=== PATIENT | female | born 1980 | race Caucasian/White ===

== ENCOUNTER → 2019-11-28 | Outpatient (CLI) | payer MEDICAID ==
[2019-11-28 12:33] LABS: HCT 44.6 % (34.0-46.0); HGB 14.7 gm/dL (11.4-16.0); MCH 30.8 pg (25.0-35.0); MCV 93.2 fL (80.0-100.0); Mean Platelet Volume 8.7; Platelet Count 221 k/uL (150-450); RBC 4.78 m/uL (3.80-5.40); RDW 13.3 % (11.5-15.5); WBC 8.9 k/uL (3.8-10.6)
== END | disposition home or self-care (01) ==
LOC: LABWHC1 11:32
PROVIDERS: ATTEND Surgery
DX: Z11.59 Encounter for screening for other viral diseases (principal)
CPT/HCPCS: 85027; 36415; U0003

== ENCOUNTER 2019-12-01 09:36 | Observation (INO) | payer MEDICAID ==
[2019-11-28 10:28] VITALS: BMI 29.5
[~2019-12-01 09:36] MED LIST: DEXAMETHASONE SOD PHOSPHATE 10 MG/ML 1 ML VIAL IV ONE; HEPARIN SODIUM,PORCINE 5,000 UNIT/ML 1 ML VIAL SQ ONE; LACTATED RINGERS 1,000 ML IV SCH; LIDOCAINE 1% (10MG/ML) FOR IV START INTRADERMA PRN; ONDANSETRON 4 MG/2 ML VIAL IVP ONE; SCOPOLAMINE 1.5MG/72HR PATCH TRANSDERM ONE
--- NOTE | 2019-12-01 10:46 | P.GSHP ---
History of Present Illness H&P Date: 12/01/19 Chief Complaint: Panniculus This a 39-year-old female presents today for panniculus.. Patient has developed significant skin rashes related to her well-formed panniculus. Patient is aware that this is not a cosmetic procedure of procedure remove redundant skin and fat. Patient with a risk of surgery including the possible need for revisional surgery for cosmesis. Past Medical History Past Medical History: Asthma, Pneumonia Additional Past Medical History / Comment(s): occ migraine, has cold sore, polyps on thyroid, states skin "flap" in front from surgeries and 50 # wt loss. History of Any Multi-Drug Resistant Organisms: MRSA Date of last positivie culture/infection: 03/2016 MDRO Source:: back Past Surgical History: Section, Cholecystectomy, Hernia Repair, Hysterectomy, Uterine Ablation Additional Past Surgical History / Comment(s): EGD, LEEP, hiatal hernia surgery. Past Anesthesia/Blood Transfusion Reactions: Previous Problems w/ Anesthesia, Postoperative Nausea & Vomiting (PONV) Additional Past Anesthesia/Blood Transfusion Reaction / Comment(s): DIFFICULTY BREATHING WHEN SHE WOKE UP. Past Psychological History: No Psychological Hx Reported Smoking Status: Former smoker Past Alcohol Use History: Rare Additional Past Alcohol Use History / Comment(s): STARTED SMOKING AT AGE 16 QUIT 2014 -was only someday smoker Past Drug Use History: None Reported - Past Family History Mother Family Medical History: Deep Vein Thrombosis (DVT) Daughter(s) Family Medical History: Pulmonary Embolus Sister(s) Family Medical History: Pulmonary Embolus Medications and Allergies Home Medications Medication Instructions Recorded Confirmed Type Albuterol Inhaler (Mhu) [Ventolin 1 - 2 puff INHALATION DIRECTED 09/12/15 12/01/19 History Hfa Inhaler] PRN Acetaminophen [Tylenol Extra 500 mg PO DIRECTED PRN 11/28/19 12/01/19 History Strength] Albuterol Nebulizer 1 dose INHALATION DIRECTED PRN 11/28/19 12/01/19 History Budesonide-Formot 160-4.5 Mcg 2 puff INHALATION BID 11/28/19 12/01/19 History [Symbicort 160-4.5 Mcg Inhaler] Valtrex (Unknown Dose) 1 tab PO DIRECTED PRN 11/28/19 12/01/19 History Allergies Allergy/AdvReac Type Severity Reaction Status Date / Time sumatriptan [From Imitrex] Allergy Swelling Verified 11/28/19 09:42 sumatriptan succinate Allergy Swelling Verified 11/28/19 09:42 [From Imitrex] of face Surgical - Exam Vital Signs Temp Pulse Resp BP Pulse Ox 98.1 F 84 16 136/82 96 12/01/19 10:00 12/01/19 10:00 12/01/19 10:00 12/01/19 10:00 12/01/19 10:00 - General well developed, well nourished, no distress, moderate distress - Eyes PERRL - ENT normal pinna - Neck no masses - Respiratory normal expansion - Cardiovascular Rhythm: regular - Abdomen Well-formed panniculus with evidence of chronic skin irritation Abdomen: soft, non tender Assessment and Plan Assessment: Panniculus. We'll perform panniculectomy.
[2019-12-01] MEDS ORDERED: LIDOCAINE 1% INJ 10MG/ML (20 ML MDV) ONE (12:06)
[2019-12-01] MEDS ORDERED: HYDROmorphone (PF) 1 MG/ML ONE (12:06)
[2019-12-01] MEDS ORDERED: PROPOFOL 10 MG/ML 20 ML VIAL IV ONE (12:06)
[2019-12-01] MEDS ORDERED: fentaNYL (PF) 50 MCG/ML 2 ML AMP ONE (12:06)
[2019-12-01] MEDS ORDERED: SUCCINYLCHOLINE CHLORIDE 100 MG/5 ML SYR IV ONE (12:06)
[2019-12-01] MEDS ORDERED: MIDAZOLAM 2 MG/2 ML VIAL ONE (12:06)
[2019-12-01] MEDS ORDERED: LACTATED RINGERS 1,000 ML IV ONE ×2 (13:50→13:51)
[2019-12-01] MEDS ORDERED: HYDROmorphone 0.5 MG/0.5 ML SYRINGE IVP PRN (13:50)
[2019-12-01] MEDS ORDERED: NALOXONE 0.4 MG/ML 1 ML VIAL IV PRN (13:50)
[2019-12-01] MEDS ORDERED: HYDROcodone/APAP 5-325MG 1 EACH TAB PO PRN (13:50)
[2019-12-01] MEDS: HYDROmorphone 0.5 MG/0.5 ML SYRINGE IVP PRN ×3 (14:21→14:49)
[2019-12-01] MEDS: ONDANSETRON 4 MG/2 ML VIAL IVP PRN ×2 (14:21→21:18)
[2019-12-01] MEDS ORDERED: PROMETHAZINE INJ 25 MG/ML 1 ML VIAL IVPB ONE (14:25)
--- NOTE | 2019-12-01 15:42 | P.OP ---
Date of Procedure: 12/01/19 Preoperative Diagnosis: Panniculus Postoperative Diagnosis: Panniculus Procedure(s) Performed: panniculectomy Anesthesia: SAM Surgeon: Elias Owen Estimated Blood Loss (ml): 50 Pathology: none sent Condition: stable Disposition: PACU Operative Findings: 5 pound pannus excision Description of Procedure: PROCEDURE: The patient was placed on the operating table in supine position and received general anesthetic. The abdomen was prepped and draped in the usual sterile fashion. The lower skin incision was then made after the skin was marked with a marker. The incision ran from the pubic area to the level of the anterosuperior iliac spine. Using blunt and sharp dissection and electrocautery the subcutaneous tissues were then dissected down to the level of the fascia external oblique. Next, a leigha shaped incision was made around the um bilicus and the umbilicus was then dissected down to the level of the fascia external oblique. Care was taken to ensure that the umbilical stalk was wide enough in order to maintain viability of the umbilicus. After the umbilicus was dissected a 0 Vicryl suture was used to orientate the umbilicus. The suture was placed at the 12 o'clock position of the umbilicus. Following this the dissection was then made from the inferior pannicular incision cephalad. The xiphoid and costal margins were the limits of the dissection. Several small perforating vessels were ligated and cautery was used to maintain hemostasis. Once the dissection was performed the panniculus was then divided in the midline from the level of the umbilicus towards the pubic area. Downward and lateral traction was then placed on the abdominal wall and the skin was suitably marked for transection of the umbilicus. The skin was then incised and the Bovie was used for dissection of the pannicular flap. Next, three 10-Faroese SOWMYA drains were placed in the wound and brought out through separate stab incisions at the level of the pubic area. The drains were secured to the skin using 3-0 nylon. After the SOWMYA drains were secured, Greg's fascia was closed with interrupted 0 Vicryl sutures and then the skin was closed with running 3-0 Monocryl sutures. Prior to closure of the abdominal wall care was taken to ensure that both the abdominal wall and the abdominal wall flap were hemostatic. Next, the umbilicus was reattached to the abdominal wall. A marking line was made across the top of the iliac crest and this line intercepted with the midline abdominal wall line that had been previously made in the preoperative hold area. A small semicircular U-shaped incision was created at the intersection of the two lines and the umbilicus was brought up through this incision. The umbilicus was then trimmed and secured to the skin using 3-0 Monocryl sutures. At this point the drains were placed to suction. The abdomen was cleaned and then sterile tape was placed over top of the incisions. Abdominal binder was then placed. The patient tolerated the procedure well. The patient was sent to recovery room in stable condition.
[2019-12-01] MEDS: ALBUTEROL NEBULIZED 2.5 MG/3 ML INHALATION SCH (19:28)
[2019-12-01] MEDS: SYMBICORT 160-4.5 MCG INHALER INHALATION SCH (19:28)
[2019-12-01] MEDS: Acetaminophen-Codeine 300-30mg TAB PO PRN (21:18)
--- NOTE | 2019-12-01 23:31 | CONS ---
CONSULTATION REASON FOR CONSULTATION: Advice regarding asthma and other multiple medical problems requested by Dr. Owen. HISTORY OF PRESENT ILLNESS: A 39-year-old woman with a past medical history of asthma, pneumonia, history of section, cholecystectomy, being followed by Dr. Grimm in the outpatient setting underwent panniculectomy for panniculus. The patient had some nausea after that. The patient also using inhalers at home for asthma. Otherwise, there is no history of any fever, rigors. No history of headache, loss of consciousness, seizures. PAST MEDICAL HISTORY: Asthma, pneumonia, history of occasional migraines, history of section, cholecystectomy. MEDICATIONS: Medications prior to admission include: 1. Valtrex 1 tab p.r.n. 2. Symbicort 160/4.5 two puffs b.i.d. 3. Albuterol p.r.n. 4. Tylenol 500 mg p.r.n. ALLERGIES: IMITREX. FAMILY HISTORY: History of DVT in the family. SOCIAL HISTORY: History of smoking. Occasional alcohol intake. REVIEW OF SYSTEMS: ENT: No diminished hearing or diminished vision. CARDIOVASCULAR SYSTEM: As mentioned earlier. RESPIRATORY SYSTEM: As mentioned earlier. GI: As mentioned earlier. : No dysuria. NERVOUS SYSTEM: No numbness or weakness. ALLERGIES/IMMUNOLOGY: Asthma. MUSCULOSKELETAL: As mentioned earlier. HEMATOLOGY: No history of anemia. ENDOCRINE: No history of diabetes or hypothyroidism. CONSTITUTIONAL: As mentioned earlier. DERMATOLOGY: Negative. RHEUMATOLOGY: Negative. PSYCHIATRY: As mentioned earlier. PHYSICAL EXAMINATION: The patient is alert and oriented x3. Pulse 94, blood pressure 151/88, respiration 16, temperature 97.7, pulse ox 97% on 2 L. HEENT: Conjunctivae normal. Oral mucosa moist. NECK: No jugular venous distention. No carotid bruit. No lymph node enlargement. CARDIOVASCULAR: S1, S2 muffled. RESPIRATORY: Breath sounds diminished at the bases. A few rhonchi, no crackles. ABDOMEN: Soft, status post surgery, panniculectomy. LEGS: No edema, no swelling. NERVOUS SYSTEM: Higher function as mentioned. Moves all 4 limbs. No focal motor or sensory deficits. LYMPHATICS: No lymphadenopathy of the neck, axillae or groin. SKIN: No ulcer, rash or bleeding. JOINTS: No active deforming arthropathy. LABS: Labs are preop labs: Hemoglobin is normal. The chemistry available in the chart is normal. ASSESSMENT: 1. Status post panniculectomy. 2. History of asthma. 3. History of pneumonia. 4. History of migraine. 5. History of thyroid polyps. 6. History of MRSA. 7. History of cholecystectomy. 8. History of hysterectomy. 9. History of uterine ablation. 10.History of hiatal hernia surgery. 11.Remote history of nicotine dependence. 12.FULL CODE. RECOMMENDATION AND DISCUSSION: This 39-year-old woman who presented with multiple complex medical issues, at this time I recommend to continue the current medications, continue with symptomatic treatment. Resume the home medications including bronchodilators, incentive spirometry and DVT prophylaxis. We will follow the patient closely with you and patient may be asked to follow with Dr. Grimm closely after discharge. Thank you Dr. Owen for letting us participate in the care of this patient. MMODL / IJN: [id number] /
[2019-12-02] MEDS: ONDANSETRON 4 MG/2 ML VIAL IVP PRN (05:17)
[2019-12-02] MEDS: Acetaminophen-Codeine 300-30mg TAB PO PRN ×2 (05:17→12:04)
[2019-12-02] MEDS: ALBUTEROL NEBULIZED 2.5 MG/3 ML INHALATION SCH ×3 (06:39→12:04)
[2019-12-02] MEDS ORDERED: PANTOPRAZOLE 40 MG TABLET PO SCH (07:30)
[2019-12-02] MEDS: SYMBICORT 160-4.5 MCG INHALER INHALATION SCH (08:02)
[2019-12-02] MEDS ORDERED: ENOXAPARIN 40 MG/0.4 ML SYRINGE SQ SCH (09:00)
[2019-12-02 10:45] VITALS: BP 116/77; PULSE 86; RESP 20; TEMP 98.1
--- NOTE | 2019-12-02 10:54 | P.DS ---
Providers Date of admission: 12/02/19 06:39 Expected date of discharge: 12/02/19 Attending physician: Elias Owen Consults: 12/01/19 13:50 Consult Physician Routine Consulting Provider: Yaw Rivas Consult Reason/Comments: Medical management Do you want consulting provider notified?: Yes Primary care physician: [facility] Course: This a 39-year-old female who underwent panniculectomy. Patient did well postoperative. Please see hospital chart for details. On the day of discharge her abdominal pain was minimal. Her SOWMYA drains had minimal output and her in cision site was clean dry and intact. Procedures: Panniculectomy Patient Condition at Discharge: Good Plan - Discharge Summary Discharge Rx Participant: Yes New Discharge Prescriptions: New Docusate [Colace] 100 mg PO BID #20 capsule HYDROcodone/APAP 5-325MG [[place] 5-325] 1 tab PO Q6HR PRN #10 tab PRN Reason: Pain No Action Albuterol Inhaler (Mhu) [Ventolin Hfa Inhaler] 1 - 2 puff INHALATION DIRECTED PRN PRN Reason: sob Budesonide-Formot 160-4.5 Mcg [Symbicort 160-4.5 Mcg Inhaler] 2 puff INHALATION BID Albuterol Nebulizer 1 dose INHALATION DIRECTED PRN PRN Reason: Shortness Of Breath Acetaminophen [Tylenol Extra Strength] 500 mg PO DIRECTED PRN PRN Reason: Pain Valtrex (Unknown Dose) 1 tab PO DIRECTED PRN PRN Reason: Cold Sores Discharge Medication List Albuterol Inhaler (Mhu) [Ventolin Hfa Inhaler] 1 - 2 puff INHALATION DIRECTED PRN 09/12/15 [History] Acetaminophen [Tylenol Extra Strength] 500 mg PO DIRECTED PRN 11/28/19 [History] Albuterol Nebulizer 1 dose INHALATION DIRECTED PRN 11/28/19 [History] Budesonide-Formot 160-4.5 Mcg [Symbicort 160-4.5 Mcg Inhaler] 2 puff INHALATION BID 11/28/19 [History] Valtrex (Unknown Dose) 1 tab PO DIRECTED PRN 11/28/19 [History] Docusate [Colace] 100 mg PO BID #20 capsule 12/02/19 [Rx] HYDROcodone/APAP 5-325MG [[place] 5-325] 1 tab PO Q6HR PRN #10 tab 12/02/19 [Rx] Follow up Appointment(s)/Referral(s): Elias Owen MD [STAFF PHYSICIAN] - 1 Week
--- NOTE | 2019-12-02 11:44 | P.PN ---
Subjective Progress Note Date: 12/02/19 Principal diagnosis: This is a 39-year-old female who was recently admitted for panniculectomy for panniculus with Dr. Owen and was being closely monitored. Home medications have been resumed and patient will continue with home medications in the outpatient setting. No reports of nausea, vomiting, or diarrhea. Patient states she is passing gas but has not had a bowel movement. She was only on clear liquids and okay to advance diet as tolerated. Patient states she is g oing home today. No reports of fevers, chest pain, shortness of breath, or palpitations. Objective - Vital Signs Vital signs: Vital Signs Temp 98.1 F 12/02/19 08:21 Pulse 86 12/02/19 08:21 Resp 20 12/02/19 08:21 BP 116/77 12/02/19 08:21 Pulse Ox 95 12/02/19 08:21 Intake & Output 12/01/19 12/02/19 12/02/19 18:59 06:59 18:59 Intake Total 1600 840 Output Total 50 1945 320 Balance 1550 -1105 -320 Weight 91 kg Intake: IV 1600 Oral 840 Output: Drainage 145 20 DRAIN 1 45 DRAIN 2 100 20 Urine 1800 300 Estimated Blood Loss 50 Other: # Voids 2 - Exam Gen: This is a 39-year-old female sitting up in bed awake, alert and oriented 3, well-developed, well-nourished. HEENT: Head is atraumatic, normocephalic. Pupils equal, round. Sclerae is anicteric. NECK: Supple. No JVD. No lymphadenopathy. No thyromegaly. LUNGS: Clear to auscultation. No wheezes or rhonchi. No intercostal retractions. HEART: S1, S2 are present ABDOMEN: Soft. Bowel sounds are present. No masses. Mild tenderness status post panniculectomy. SOWMYA drain noted which will be staying in on discharge per surgery until follow-up. EXTREMITIES: No pedal edema. No calf tenderness. NEUROLOGICAL: Patient is awake, alert and oriented x3. Cranial nerves 2 through 12 are grossly intact. Assessment and Plan Assessment: Status post panniculectomy History of asthma, not in any acute exacerbation History of pneumonia History of migraines history of thyroid polyps History of MRSA history of cholecystectomy History of hysterectomy History of uterine ablation History of hiatal hernia surgery Remote history of nicotine dependence Full code Recommendations and discussion: Recommend continue current home medications and symptomatic treatment. May advance diet slowly as tolerated. Will continue to follow closely with surgery during hospitalization. Further recommendations to follow. Patient is anticipating discharge today. Will follow-up with surgery in the outpatient setting.
== END 2019-12-02 14:19 | disposition home or self-care (01) ==
LOC: OR 09:36 → 6PED 14:01 → OR 12-02 06:39 → 6PED 12-02 06:39
PROVIDERS: ADMIT Surgery; ATTEND Surgery
DX: M79.3 Panniculitis, unspecified (principal); J45.909 Unspecified asthma, uncomplicated; Z87.01 Personal history of pneumonia (recurrent); G43.909 Migraine, unspecified, not intractable, without status migrainosus; E07.89 Other specified disorders of thyroid; Z86.14 Personal history of Methicillin resistant Staphylococcus aureus infection; Z90.49 Acquired absence of other specified parts of digestive tract; Z90.710 Acquired absence of both cervix and uterus; Z98.890 Other specified postprocedural states; Z87.891 Personal history of nicotine dependence; Z82.49 Family history of ischemic heart disease and other diseases of the circulatory system; Z79.51 Long term (current) use of inhaled steroids; Z79.899 Other long term (current) drug therapy; Z88.8 Allergy status to other drugs, medicaments and biological substances
CPT/HCPCS: 94640 ×2; 15830; G0378; J2250; J1644; J1100; J2550; J0690; J2405 ×2; J2001; J3010; J1170 ×2; J0330; J2704

== ENCOUNTER → 2020-04-27 | Outpatient (CLI) | payer MEDICAID ==
[2020-04-27 16:16] LABS: African American GFR (CKD) 65.9 (60.0-200.0); Albumin 4.5 g/dL (3.80-4.90); Albumin/Globulin Ratio 1.67 (1.60-3.17); Anion Gap 8.7 mmol/L (4.00-12.00); BUN/Creat Ratio 7.5 Ratio (12.00-20.00); Calcium 9.7 mg/dL (8.7-10.3); Carbon Dioxide 23.3 mmol/L (21.6-31.8); Chol/HDL Ratio 4.53; Globulin 2.7 g/dL (1.6-3.3); LDL Cholesterol,Calculated 113.2 mg/dL (0.0-131.0); Non-African American GFR(CKD) 56.9 (60.0-200.0); Potassium 4.7 mmol/L (3.5-5.5); Total Bilirubin 0.6 mg/dL (0.3-1.2); Total Protein 7.2 g/dL (6.2-8.2); VLDL Calculation 38.8 mg/dL (5.00-40.00)
== END | disposition home or self-care (01) ==
LOC: LABWHC1 08:56
PROVIDERS: ATTEND Internal Medicine Interventional Cardiology
DX: R07.9 Chest pain, unspecified (principal)
CPT/HCPCS: 36415; 80053; 80061

== ENCOUNTER 2020-12-04 21:56 | Emergency (ER) | payer MEDICAID ==
[2020-12-04 22:05] VITALS: BP 138/95; PULSE 91; RESP 18; TEMP 98.1
[2020-12-04] MEDS ORDERED: DIPH,PERTUS(ACELL)TETVAC-LF 0.5 ML VIAL IM ONE (22:47)
[2020-12-04] MEDS ORDERED: LIDOCAINE 1%-EPI 1:100,000 20 ML VIAL SQ STA (22:47)
[2020-12-04] MEDS ORDERED: IBUPROFEN 600 MG TAB PO STA (22:48)
[2020-12-04] MEDS ORDERED: BACITRACIN OINT 1 EACH PACKET TOPICAL ONE (22:48)
--- NOTE | 2020-12-04 23:37 | XR ---
EXAMINATION TYPE: XR shoulder complete LT DATE OF EXAM: 12/04/2020 COMPARISON: NONE HISTORY: Shoulder pain TECHNIQUE: 3 views FINDINGS: Glenohumeral joint is intact. I see no fracture nor dislocation. The left upper ribs appear intact. IMPRESSION: Negative left shoulder exam.
--- NOTE | 2020-12-04 23:39 | XR ---
EXAMINATION TYPE: XR knee complete LT DATE OF EXAM: 12/04/2020 COMPARISON: NONE HISTORY: Knee pain TECHNIQUE: 3 views FINDINGS: I see no fracture nor dislocation. Joint spaces are normal. There is no sign of knee joint effusion. There is no sign of a foreign body. IMPRESSION: Negative left knee exam.
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
== END 2020-12-05 00:52 | disposition home or self-care (01) ==
LOC: EC 21:56
DX: S81.812A Laceration without foreign body, left lower leg, initial encounter (principal); S40.012A Contusion of left shoulder, initial encounter; K21.9 Gastro-esophageal reflux disease without esophagitis; V86.06XA Driver of dirt bike or motor/cross bike injured in traffic accident, initial encounter
CPT/HCPCS: 12004; 90471; 90715; 99284

== ENCOUNTER → 2020-12-27 | Outpatient (CLI) | payer MEDICAID | END | disposition home or self-care (01) | LOC: LABWHC1 14:22 | PROVIDERS: ATTEND Internal Medicine | DX: E04.2 Nontoxic multinodular goiter (principal); E55.9 Vitamin D deficiency, unspecified | CPT/HCPCS: 36415; 82306; 84439; 84443 ==

== ENCOUNTER → 2020-12-27 | Outpatient (CLI) | payer MEDICAID ==
--- NOTE | 2020-12-31 11:34 | MM ---
Reason for exam: screening (asymptomatic). Last mammogram was performed 5 years and 4 months ago. History: Patient is postmenopausal. Excisional biopsy of the right breast. Physical Findings: A clinical breast exam by your physician is recommended on an annual basis and results should be correlated with mammographic findings. MG Screening Mammo w CAD Bilateral CC and MLO view(s) were taken. Prior study comparison: August 31, 2015, mammogram, performed at [facility]. May 03, 2012, mammogram, performed at [facility]. The breast tissue is heterogeneously dense. This may lower the sensitivity of mammography. Previous mammotome biopsy in the right breast x 2. There is chronic nodularity in the right breast. Stable areas of bilateral asymmetric densities. No significant changes when compared with prior studies. ASSESSMENT: Benign, BI-RAD 2 RECOMMENDATION: Routine screening mammogram of both breasts in 1 year.
== END | disposition home or self-care (01) ==
LOC: RADMAMWWP 14:00
PROVIDERS: ATTEND Obstetrics & Gynecology
DX: Z12.31 Encounter for screening mammogram for malignant neoplasm of breast (principal)
CPT/HCPCS: 77067

== ENCOUNTER → 2020-12-28 | Outpatient (CLI) | payer MEDICAID ==
--- NOTE | 2020-12-28 16:17 | US ---
EXAMINATION TYPE: US thyroid st tissue head/neck DATE OF EXAM: 12/28/2020 COMPARISON: NONE CLINICAL HISTORY: E04.2 Nontoxic multinodular goiter. GLAND SIZE: Right Lobe: 4.8 x 1.6 x 1.6 cm Overall Parenchyma: homogenous Left Lobe: 4.1 x 1.2 x 1.5 cm Overall Parenchyma: homogeneous Isthmus Thickness: 0.3 cm NODULES RIGHT: # of nodules measured on right: 1 1. 0.7 X 0.5 x 0.7 cm mid, solid, hypoechoic nodule, which is wider than tall, with smooth margins, without echogenic foci. Prior size: no prior LEFT: # of nodules measured on left: 0 ISTHMUS: # of nodules measured in the isthmus: 0 Bilateral neck scanned, no evidence of lymphadenopathy. IMPRESSION: 1. Hypoechoic nodule in the midpole of the right thyroid gland posteriorly most likely represents a T I-RADS 4 nodule. Continued sonographic follow-up is recommended. 2017 ACR TI-RADS LEVEL: 4 *Highest TI-RADS level nodule reported
== END | disposition home or self-care (01) ==
LOC: RADUSWWP 12:34
PROVIDERS: ATTEND Internal Medicine
DX: E04.2 Nontoxic multinodular goiter (principal)
CPT/HCPCS: 76536

== ENCOUNTER 2021-03-05 10:59 | Emergency (ER) | payer MEDICAID ==
[2021-03-05] MEDS ORDERED: IBUPROFEN 600 MG TAB PO STA (11:30)
[2021-03-05] MEDS ORDERED: ONDANSETRON 4 MG/2 ML VIAL IVP STA (11:30)
[2021-03-05] MEDS ORDERED: SODIUM CHLORIDE 0.9% 1,000 ML IV STA (11:30)
--- NOTE | 2021-03-05 12:06 | XR ---
EXAMINATION TYPE: XR chest 2V DATE OF EXAM: 03/05/2021 COMPARISON: Chest x-ray March 26, 2010 HISTORY: Fever and cough. TECHNIQUE: Frontal and lateral views of the chest are obtained. FINDINGS: There is no new Suspicious focal air space opacity, pleural effusion, or pneumothorax seen . The cardiac silhouette size remains within normal limits. The osseous structures are intact. IMPRESSION: No acute pulmonary infiltrate.
[2021-03-05 12:19] LABS: Basophils % (A) 0 %; Eosinophils % (A) 1 %; HCT 41.6 % (34.0-46.0); HGB 15.2 gm/dL (11.4-16.0); Hyperchromasia Moderate; Lymphocytes # (A) 0.3 k/uL (1.0-4.8); Lymphocytes % (A) 7 %; MCH 31.9 pg (25.0-35.0); MCHC 36.5 g/dL (31.0-37.0); MCV 87.4 fL (80.0-100.0); Mean Platelet Volume 8.5; Monocytes # (A) 0.1 k/uL (0-1.0); Monocytes % (A) 2 %; Neutrophils # (A) 4.2 k/uL (1.3-7.7); Neutrophils % (A) 89 %; Platelet Count 136 k/uL (150-450); Poikilocytosis Slight; RBC 4.76 m/uL (3.80-5.40); RDW 13.3 % (11.5-15.5); WBC 4.7 k/uL (3.8-10.6)
[2021-03-05 12:25] LABS: ALT 20 U/L (4-34); African American GFR (CKD) >90 (>60 ml/min/1.73 sqM); Albumin 3.9 g/dL (3.5-5.0); Anion Gap 9 mmol/L; Blood Urea Nitrogen 15 mg/dL (7-17); Calcium 8.9 mg/dL (8.4-10.2); Carbon Dioxide 22 mmol/L (22-30); Chloride 99 mmol/L (98-107); Glucose 106 mg/dL (74-99); Non-African American GFR(CKD) 78 (>60 ml/min/1.73 sqM); Sodium 130 mmol/L (137-145); Total Bilirubin 1.4 mg/dL (0.2-1.3); Total Protein 7.1 g/dL (6.3-8.2)
[2021-03-05 12:27] LABS: AST 95 U/L (14-36); Alkaline Phosphatase 65 U/L (38-126); Potassium 4.4 mmol/L (3.5-5.1)
--- NOTE | 2021-03-05 12:34 | ED ---
Fever HPI - General Source: patient Mode of arrival: wheelchair Limitations: no limitations <Mark Canela - Last Filed: 03/05/21 14:31> <Monica Marino - Last Filed: 03/06/21 01:33> - General Chief Complaint: Fever Stated Complaint: vomiting, fever Time Seen by Provider: 03/05/21 11:18 - History of Present Illness Initial Comments: 40-year-old female presenting to emergency Department for cough fever and co ngestion. Patient reports her symptoms started about one week ago with some sinus congestion and she saw her primary care physician who started her on Keflex. Patient reports she finished medication but then continued to have symptoms which progressed to a nonproductive cough. She reports clear bilateral rhinorrhea. Reports a fever over the last 4 days which she has been able to break [id number] antipyretics. She also reports nausea with several episodes of non-bilious and nonbloody vomiting over the last few days. However, she denies any abdominal pain constipation or diarrhea. Patient reports yesterday she was tested for Covid and it was negative. She denies any urinary or vaginal symptoms. (Mark Canela) - Related Data Home Medications Medication Instructions Recorded Confirmed Budesonide-Formot 160-4.5 Mcg 2 puff INHALATION RT-BID 11/28/19 03/05/21 [Symbicort 160-4.5 Mcg Inhaler] Albuterol Inhaler [Ventolin Hfa 2 puff INHALATION RT-QID PRN 03/05/21 03/05/21 Inhaler] Ibuprofen 800 mg PO Q8H PRN 03/05/21 03/05/21 Previous Rx's Medication Instructions Recorded Azithromycin [Zithromax Z-pack (6 0 mg PO DIRECTED #1 packet 03/05/21 tabs)] Ondansetron Odt [Zofran Odt] 4 mg PO Q8HR PRN #10 tab 03/05/21 Allergies Allergy/AdvReac Type Severity Reaction Status Date / Time sumatriptan [From Imitrex] Allergy Swelling Verified 03/05/21 11:51 sumatriptan succinate Allergy Swelling Verified 03/05/21 11:51 [From Imitrex] of face Review of Systems ROS Other: All systems not noted in ROS Statement are negative. <Mark Canela - Last Filed: 03/05/21 14:31> ROS Other: All systems not noted in ROS Statement are negative. <Monica Marino - Last Filed: 03/06/21 01:33> ROS Statement: Those systems with pertinent positive or pertinent negative responses have been documented in the HPI. Past Medical History Past Medical History: Asthma, Pneumonia Additional Past Medical History / Comment(s): occ migraine, hx HIATAL HERNIA, itchy skin on stomach, History of Any Multi-Drug Resistant Organisms: MRSA Date of last positivie culture/infection: 02/05/20 MDRO Source:: Abdomen Past Surgical History: Section, Cholecystectomy, Hysterectomy, Uterine Ablation Additional Past Surgical History / Comment(s): EGD, LEEP, surgery to repair hiatal hernia, Past Anesthesia/Blood Transfusion Reactions: Previous Problems w/ Anesthesia, Postoperative Nausea & Vomiting (PONV) Additional Past Anesthesia/Blood Transfusion Reaction / Comment(s): DIFFICULTY BREATHING WHEN SHE WOKE UP. Past Psychological History: No Psychological Hx Reported Smoking Status: Never smoker Past Alcohol Use History: None Reported Past Drug Use History: None Reported - Past Family History Mother Family Medical History: Deep Vein Thrombosis (DVT) Daughter(s) Family Medical History: Pulmonary Embolus Sister(s) Family Medical History: Pulmonary Embolus <Mark Canela - Last Filed: 03/05/21 14:31> General Exam Limitations: no limitations General appearance: alert, in no apparent distress Head exam: Present: atraumatic, normocephalic, normal inspection Eye exam: Present: normal appearance, EOMI Pupils: Present: normal accommodation ENT exam: Present: normal exam, mucous membranes moist, TM's normal bilaterally, normal external ear exam Neck exam: Present: normal inspection, full ROM. Absent: tenderness, lymphadenopathy Respiratory exam: Present: normal lung sounds bilaterally. Absent: respiratory distress, wheezes, rales, rhonchi, stridor, chest wall tenderness, accessory muscle use Cardiovascular Exam: Present: regular rate, normal rhythm, normal heart sounds. Absent: systolic murmur GI/Abdominal exam: Present: soft. Absent: distended, tenderness, guarding Extremities exam: Present: normal inspection, full ROM, normal capillary refill. Absent: tenderness, pedal edema, joint swelling Back exam: Present: normal inspection, full ROM. Absent: tenderness, CVA tenderness (R), CVA tenderness (L) Neurological exam: Present: alert, oriented X3 Psychiatric exam: Present: normal affect, normal mood Skin exam: Present: warm, dry, intact, normal color <Mark Canela - Last Filed: 03/05/21 14:31> Course Vital Signs 03/05/21 03/05/21 03/05/21 11:14 12:04 13:08 Temperature 100.4 F H 100.3 F H Pulse Rate 118 H 104 H Respiratory 18 16 16 Rate Blood Pressure 113/73 114/68 O2 Sat by Pulse 94 L 94 L Oximetry 03/05/21 14:18 Temperature Pulse Rate 95 Respiratory 18 Rate Blood Pressure O2 Sat by Pulse 94 L Oximetry Medical Decision Making - Lab Data Result diagrams: 03/05/21 12:00 03/05/21 12:00 <Mark Canela - Last Filed: 03/05/21 14:31> - Lab Data Result diagrams: 03/05/21 12:00 03/05/21 12:00 <Monica Marino - Last Filed: 03/06/21 01:33> - Medical Decision Making 40-year-old female presenting to emergency Department for cough fever and congestion. On physical examination, patient is well-appearing. Lungs are clear to auscultation. ENT examination is unremarkable. Chest x-ray is unremarkable. Laboratory work shows no acute findings. UA shows +2 ketones. Patient was given a limited of IV bolus fluids. She was also given antipyretics here. Covid negative. Negative urine . UA is unremarkable. The patient's sinus symptoms appeared to resemble a viral syndrome. On reevaluation, she reports feeling better after the IV fluids. I will discharge the patient with Zofran and a Z-Huseyin. She will follow with the primary care physician. Advised to drink plenty of fluids. Return parameters were thoroughly discussed patient is understanding and agreeable. Case discussed with Dr. Marino (Mark Canela) I was available for consultation in the emergency department. The history and physical exam were done by the midlevel provider. I was consulted for this patients care. I reviewed the case with the midlevel provider and based on their presentation of the patient, I agree with the assessment, medical decision making and plan of care as documented. Chart was dictated using [employer] dictation software. Attempts were made to c orrect any dictation errors however some typographical errors may persist. Patient was seen during a national state of emergency due to the Covid-19 pandemic. (Moniac Marino) - Lab Data Lab Results 03/05/21 03/05/21 03/05/21 Range/Units 12:00 12:00 12:00 WBC 4.7 (3.8-10.6) k/uL RBC 4.76 (3.80-5.40) m/uL Hgb 15.2 (11.4-16.0) gm/dL Hct 41.6 (34.0-46.0) % MCV 87.4 (80.0-100.0) fL MCH 31.9 (25.0-35.0) pg MCHC 36.5 (31.0-37.0) g/dL RDW 13.3 (11.5-15.5) % Plt Count 136 L (150-450) k/uL MPV 8.5 Neutrophils % 89 % Lymphocytes % 7 % Monocytes % 2 % Eosinophils % 1 % Basophils % 0 % Neutrophils # 4.2 (1.3-7.7) k/uL Lymphocytes # 0.3 L (1.0-4.8) k/uL Monocytes # 0.1 (0-1.0) k/uL Eosinophils # 0.0 (0-0.7) k/uL Basophils # 0.0 (0-0.2) k/uL Hyperchromasia Moderate Poikilocytosis Slight Sodium 130 L (137-145) mmol/L Potassium 4.4 (3.5-5.1) mmol/L Chloride 99 (98-107) mmol/L Carbon Dioxide 22 (22-30) mmol/L Anion Gap 9 mmol/L BUN 15 (7-17) mg/dL Creatinine 0.92 (0.52-1.04) mg/dL Est GFR (CKD-EPI)AfAm >90 (>60 ml/min/1.73 sqM) Est GFR (CKD-EPI)NonAf 78 (>60 ml/min/1.73 sqM) Glucose 106 H (74-99) mg/dL Calcium 8.9 (8.4-10.2) mg/dL Total Bilirubin 1.4 H (0.2-1.3) mg/dL AST 95 H (14-36) U/L ALT 20 (4-34) U/L Alkaline Phosphatase 65 (38-126) U/L Total Protein 7.1 (6.3-8.2) g/dL Albumin 3.9 (3.5-5.0) g/dL Urine Color Urine Appearance (Clear) Urine pH (5.0-8.0) Ur Specific Winter (1.001-1.035) Urine Protein (Negative) Urine Glucose (UA) (Negative) Urine Ketones (Negative) Urine Blood (Negative) Urine Nitrite (Negative) Urine Bilirubin (Negative) Urine Urobilinogen (<2.0) mg/dL Ur Leukocyte Esterase (Negative) Urine RBC (0-5) /hpf Urine WBC (0-5) /hpf Ur Squamous Epith Cells (0-4) /hpf Urine Bacteria (None) /hpf Urine Mucus (None) /hpf Urine HCG, Qual (Not Detectd) Coronavirus (PCR) Not Detected (Not Detectd) 03/05/21 03/05/21 Range/Units 12:53 12:53 WBC (3.8-10.6) k/uL RBC (3.80-5.40) m/uL Hgb (11.4-16.0) gm/dL Hct (34.0-46.0) % MCV (80.0-100.0) fL MCH (25.0-35.0) pg MCHC (31.0-37.0) g/dL RDW (11.5-15.5) % Plt Count (150-450) k/uL MPV Neutrophils % % Lymphocytes % % Monocytes % % Eosinophils % % Basophils % % Neutrophils # (1.3-7.7) k/uL Lymphocytes # (1.0-4.8) k/uL Monocytes # (0-1.0) k/uL Eosinophils # (0-0.7) k/uL Basophils # (0-0.2) k/uL Hyperchromasia Poikilocytosis Sodium (137-145) mmol/L Potassium (3.5-5.1) mmol/L Chloride (98-107) mmol/L Carbon Dioxide (22-30) mmol/L Anion Gap mmol/L BUN (7-17) mg/dL Creatinine (0.52-1.04) mg/dL Est GFR (CKD-EPI)AfAm (>60 ml/min/1.73 sqM) Est GFR (CKD-EPI)NonAf (>60 ml/min/1.73 sqM) Glucose (74-99) mg/dL Calcium (8.4-10.2) mg/dL Total Bilirubin (0.2-1.3) mg/dL AST (14-36) U/L ALT (4-34) U/L Alkaline Phosphatase (38-126) U/L Total Protein (6.3-8.2) g/dL Albumin (3.5-5.0) g/dL Urine Color Yellow Urine Appearance Cloudy H (Clear) Urine pH 6.0 (5.0-8.0) Ur Specific Winter 1.031 (1.001-1.035) Urine Protein 1+ H (Negative) Urine Glucose (UA) Negative (Negative) Urine Ketones 2+ H (Negative) Urine Blood Negative (Negative) Urine Nitrite Negative (Negative) Urine Bilirubin Negative (Negative) Urine Urobilinogen 2.0 (<2.0) mg/dL Ur Leukocyte Esterase Negative (Negative) Urine RBC 6 H (0-5) /hpf Urine WBC <1 (0-5) /hpf Ur Squamous Epith Cells 3 (0-4) /hpf Urine Bacteria Occasional H (None) /hpf Urine Mucus Many H (None) /hpf Urine HCG, Qual Not Detected (Not Detectd) Coronavirus (PCR) (Not Detectd) Disposition Is patient prescribed a controlled substance at d/c from ED?: No Time of Disposition: 13:59 <Mark Canela - Last Filed: 03/05/21 14:31> <Monica Marino - Last Filed: 03/06/21 01:33> Clinical Impression: Viral syndrome Disposition: HOME SELF-CARE Condition: Stable Instructions (If sedation given, give patient instructions): Viral Syndrome (ED) Additional Instructions: Take prescribed medication as directed. Continue taking Tylenol and Motrin. Return to emergency department if symptoms worsen. Prescriptions: Azithromycin [Zithromax Z-pack (6 tabs)] 0 mg PO DIRECTED #1 packet Ondansetron Odt [Zofran Odt] 4 mg PO Q8HR PRN #10 tab PRN Reason: Nausea Referrals: Kemal Grimm MD [Primary Care Provider] - 1-2 days
[2021-03-05 13:10] VITALS: BP 114/68; TEMP 100.3
[2021-03-05 13:29] LABS: Appearance,Urine Cloudy (Clear); Bacteria,Urine Occasional /hpf; Bilirubin,Urine Negative (Negative); Blood,Urine Negative (Negative); Color,Urine Yellow; Glucose,Urine (UA) Negative (Negative); Ketones,Urine 2+ (Negative); Leukocyte Esterase,Urine Negative (Negative); Mucus,Urine Many /hpf; Nitrite,Urine Negative (Negative); Protein,Urine 1+ (Negative); RBC,Urine 6 /hpf (0-5); Specific Gravity,Urine 1.031 (1.001-1.035); Squamous Epithelial Cell,Urine 3 /hpf (0-4); WBC,Urine <1 /hpf (0-5)
[2021-03-05] MEDS ORDERED: ACETAMINOPHEN TAB 500 MG TAB PO STA (13:41)
[2021-03-05 14:19] VITALS: PULSE 95; RESP 18
== END 2021-03-05 13:59 | disposition home or self-care (01) ==
LOC: EC 10:59
DX: B34.9 Viral infection, unspecified (principal); R82.4 Acetonuria; G43.909 Migraine, unspecified, not intractable, without status migrainosus; J45.909 Unspecified asthma, uncomplicated; Z20.822 Contact with and (suspected) exposure to COVID-19; Z88.8 Allergy status to other drugs, medicaments and biological substances; Z79.51 Long term (current) use of inhaled steroids
CPT/HCPCS: 36415; 80053; 85025; 81001; 81025; 87635; 71046; 99284; 96374; 96361; J2405

== ENCOUNTER 2021-10-15 23:46 | Emergency (ER) | payer MEDICAID ==
[2021-10-16 00:13] VITALS: BP 125/82; PULSE 103; RESP 20; TEMP 98.8
[2021-10-16 00:39] LABS: Appearance,Urine Cloudy (Clear); Bacteria,Urine Rare /hpf; Bilirubin,Urine Negative (Negative); Blood,Urine Small (Negative); Color,Urine Yellow; Glucose,Urine (UA) Negative (Negative); Ketones,Urine Negative (Negative); Leukocyte Esterase,Urine Large (Negative); Nitrite,Urine Negative (Negative); Protein,Urine Trace (Negative); RBC,Urine 1 /hpf (0-5); Specific Gravity,Urine 1.027 (1.001-1.035); Squamous Epithelial Cell,Urine 1 /hpf (0-4); WBC,Urine 10 /hpf (0-5)
== END 2021-10-16 01:22 | disposition left against medical advice (07) ==
LOC: EC 23:46
DX: Z53.21 Procedure and treatment not carried out due to patient leaving prior to being seen by health care provider (principal)
CPT/HCPCS: 81001; 99499

== ENCOUNTER → 2023-04-11 | Outpatient (CLI) | payer MEDICAID ==
[2023-04-11 14:56] LABS: Appearance,Urine Clear (Clear); Bilirubin,Urine Negative (Negative); Blood,Urine Negative (Negative); Color,Urine Yellow; Glucose,Urine (UA) Negative (Negative); Ketones,Urine Negative (Negative); Leukocyte Esterase,Urine Negative (Negative); Nitrite,Urine Negative (Negative); Protein,Urine Negative (Negative); Specific Gravity,Urine 1.023 (1.001-1.035); Urobilinogen,Urine <2.0 mg/dL (<2.0)
== END | disposition home or self-care (01) ==
LOC: LABPAT 14:15
PROVIDERS: ATTEND Urology
DX: Z01.812 Encounter for preprocedural laboratory examination (principal); N39.3 Stress incontinence (female) (male); R35.0 Frequency of micturition
CPT/HCPCS: 36415; 81003; 87086

== ENCOUNTER 2023-04-18 07:34 | Day surgery (SDC) | payer MEDICAID ==
--- NOTE | 2023-04-17 18:26 | P.GSHP ---
History of Present Illness H&P Date: 04/17/23 42 yo female with a several year history of classic charmaine. 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 She was given treatment options. She has chosen to proceed with a pubovaginal sling[lynx]. the risks and complications including the mesh controversy have been discussed. The risk of pain, dyspareunia, erosin, infection injury to adjacent organs, retention, incontinence have been explained understood and accepted. - Constitutional Constitutional: Denies chills, Denies fever - EENT Eyes: denies blurred vision, denies pain Ears, nose, mouth and throat: Denies headache, Denies sore throat - Cardiovascular Cardiovascular: Denies chest pain, Denies shortness of breath - Respiratory Respiratory: Denies cough, Denies 7 - Gastrointestinal Gastrointestinal: Denies abdominal pain, Denies diarrhea, Denies nausea, Denies vomiting - Genitourinary (Female) Genitourinary: Denies dysuria, Denies hematuria - Genitourinary (Male) Genitourinary: Denies dysuria, Denies hematuria - Musculoskeletal Musculoskeletal: Denies myalgias - Integumentary Integumentary: Denies pruritus, Denies rash - Neurological Neurological: Denies numbness, Denies weakness - Psychiatric Psychiatric: Denies anxiety, Denies depression - Endocrine Endocrine: Denies fatigue, Denies weight change Past Medical History Past Medical History: Asthma, Pneumonia Additional Past Medical History / Comment(s): occ migraine, hx HIATAL HERNIA, starting to come back, urinary incontinence History of Any Multi-Drug Resistant Organisms: MRSA Date of last positivie culture/infection: 02/05/20 MDRO Source:: Abdomen Past Surgical History: Section, Cholecystectomy, Hernia Repair, Hysterectomy, Uterine Ablation Additional Past Surgical History / Comment(s): EGD, LEEP, surgery to repair hiatal hernia, nose surgery and medical tummy tuck Past Anesthesia/Blood Transfusion Reactions: Previous Problems w/ Anesthesia, Postoperative Nausea & Vomiting (PONV) Additional Past Anesthesia/Blood Transfusion Reaction / Comment(s): DIFFICULTY BREATHING WHEN SHE WOKE UP. Smoking Status: Never smoker - Past Family History Mother Family Medical History: Deep Vein Thrombosis (DVT) Daughter(s) Family Medical History: Pulmonary Embolus Sister(s) Family Medical History: Pulmonary Embolus Medications and Allergies Home Medications Medication Instructions Recorded Confirmed Type Albuterol Inhaler [Ventolin Hfa 2 puff INHALATION RT-QID PRN 03/05/21 04/13/23 History Inhaler] Ibuprofen 800 mg PO Q8H PRN 03/05/21 04/13/23 History Unk Trelegy 1 puff INHALATION DAILY 04/13/23 04/13/23 History Allergies Allergy/AdvReac Type Severity Reaction Status Date / Time sumatriptan [From Imitrex] Allergy Swelling Verified 04/13/23 10:25 sumatriptan succinate Allergy Swelling Verified 04/13/23 10:25 [From Imitrex] of face Surgical - Exam - General well developed, well nourished, no distress - Eyes normal ocular movement, no icteric - ENT no hearing loss, no congestion - Neck no masses, trachea midline - Respiratory normal respiratory effort, clear to auscultation - Abdomen Abdomen: soft, non tender, no guarding, no rigid, no rebound - Genitourinary hypermobile urethra with charmaine - Integumentary no rash, no abnormal pigmentation - Neurologic no disoriented, no combative - Psychiatric oriented to time, oriented to person, oriented to place, speech is normal, memory intact Assessment and Plan Assessment: Impression: CHARMAINE Plan: PVS with lynx graft{
[~2023-04-18 07:34] MED LIST changes: +AMPICILLIN 1,000 MG in SODIUM CHLORIDE 0.9% 50 ML IVPB PRN; -DEXAMETHASONE SOD PHOSPHATE 10 MG/ML 1 ML VIAL IV ONE; +DEXAMETHASONE SOD PHOSPHATE 4 MG/ML 1 ML VIAL IV ONE; +GENTAMICIN 120 MG in SODIUM CHLORIDE 0.9% 100 ML IVPB PRN; -HEPARIN SODIUM,PORCINE 5,000 UNIT/ML 1 ML VIAL SQ ONE; +HYDROmorphone 0.5 MG/0.5 ML SYRINGE IVP PRN; +MIDAZOLAM 2 MG/2 ML VIAL IV PRN; -SCOPOLAMINE 1.5MG/72HR PATCH TRANSDERM ONE
[2023-04-18] MEDS ORDERED: SCOPOLAMINE 1 MG/72 HR PATCH TRANSDERM ONE (08:30)
[2023-04-18] MEDS ORDERED: LIDOCAINE 1% INJ 10MG/ML (20 ML MDV) ONE (09:22)
[2023-04-18] MEDS ORDERED: SUCCINYLCHOLINE CHLORIDE 200 MG/10 ML VIAL IV ONE (09:22)
[2023-04-18] MEDS ORDERED: PROPOFOL 10 MG/ML 20 ML VIAL IV ONE (09:22)
[2023-04-18] MEDS ORDERED: MIDAZOLAM 2 MG/2 ML VIAL ONE (09:22)
[2023-04-18] MEDS ORDERED: fentaNYL (PF) 50 MCG/ML 2 ML AMP ONE (09:22)
[2023-04-18] MEDS ORDERED: HYDROmorphone (PF) 1 MG/ML ONE (09:22)
[2023-04-18] MEDS ORDERED: GENTAMICIN 40 MG/ML 2 ML VIAL IRRIGATION ONE (09:33)
[2023-04-18] MEDS ORDERED: VASOPRESSIN 20 UNIT in SODIUM CHLORIDE 0.9% 50 ML IV ONE (09:35)
[2023-04-18] MEDS ORDERED: BACITRACIN OINT 1 EACH PACKET TOPICAL ONE (09:38)
[2023-04-18] MEDS ORDERED: ALBUTEROL NEBULIZED 2.5 MG/3 ML INHALATION PRN (09:56)
[2023-04-18] MEDS ORDERED: ONDANSETRON 4 MG/2 ML VIAL IVP PRN (09:57)
--- NOTE | 2023-04-18 10:01 | P.OP ---
Date of Procedure: 04/18/23 Preoperative Diagnosis: Stress urinary incontinence Postoperative Diagnosis: Same Procedure(s) Performed: Cystoscopy with pubovaginal sling (Lynx) Anesthesia: SAM Surgeon: Partha José Estimated Blood Loss (ml): 25 Pathology: none sent Condition: stable Disposition: PACU Indications for Procedure: The patient is 42. She has stress urinary incontinence. She comes for a pubovaginal sling. The risks and complications of an outlined. Description of Procedure: Patient brought to the operating suite. Given general anesthesia. Placed lithotomy position with a sterile prep and drape. The labia are sewn laterally with 2-0 silk. A Orozco catheters introduced sterilely. The anterior vaginal mucosa was elevated off the submucosa with a mixture of 20 g of Pitressin and 200 mL of saline. I make a suburethral incision in the midline. I dissect la teral the bladder neck bilaterally. I then make incisions suprapubically at the corners of the pubis. I passed the introducers retropubically into the vaginal space bilaterally. I performed cystoscopy to make sure there is no injury to the urethra bladder neck and there is none. I attached the grafted introducers and pull it back suprapubically and it laid nicely in the vaginal space with 2-0 Vicryl. I closed the suprapubic space with 4-0 Maxon. A 1 inch perform gauze is placed. The labial stitches removed. The urine remains clear. The patient is awakened and returned recovery room good condition. Blood loss is 25 mL.
[2023-04-18 10:23] VITALS: RESP 16
[2023-04-18] MEDS ORDERED: diphenhydrAMINE 50 MG/ML 1 ML VIAL IVP ONE (10:45)
[2023-04-18] MEDS: DEXTROSE 5%-0.45% NACL 1,000 ML IV SCH ×2 (11:42→23:25)
[2023-04-18] MEDS: KETOROLAC 15 MG/ML 1 ML VIAL IVP PRN ×2 (14:11→19:56)
[2023-04-19] MEDS: KETOROLAC 15 MG/ML 1 ML VIAL IVP PRN (02:08)
--- NOTE | 2023-04-19 07:51 | P.DS ---
Providers Attending physician: Partha José Primary care physician: [facility] Course: The patient was admitted for a pubovaginal sling 04/18/23. SHe underwent this without problems. SHe has voided without problems SHe will be discharged home Limited activity. tylenol or motrin for pain Activity is limited. SHe will be seen in the office in 1 week. Patient Condition at Discharge: Good Plan - Discharge Summary Discharge Rx Participant: Yes New Discharge Prescriptions: No Action Ibuprofen 800 mg PO Q8H PRN PRN Reason: Pain Or Fever > 100.5 Albuterol Inhaler [Ventolin Hfa Inhaler] 2 puff INHALATION RT-QID PRN PRN Reason: Shortness Of Breath Unk Trelegy 1 puff INHALATION DAILY Discharge Medication List Albuterol Inhaler [Ventolin Hfa Inhaler] 2 puff INHALATION RT-QID PRN 03/05/21 [History] Ibuprofen 800 mg PO Q8H PRN 03/05/21 [History] Unk Trelegy 1 puff INHALATION DAILY 04/13/23 [History] Follow up Appointment(s)/Referral(s): Partha José MD [STAFF PHYSICIAN] - 1 Week Discharge Disposition: HOME SELF-CARE
[2023-04-19 08:47] VITALS: BP 134/87; PULSE 73; TEMP 98.2
== END 2023-04-19 09:06 | disposition home or self-care (01) ==
LOC: OR 07:34 → 4FBP 09:52 → OR 04-19 09:06
PROVIDERS: ATTEND Urology
DX: N39.3 Stress incontinence (female) (male) (principal); J45.909 Unspecified asthma, uncomplicated; Z98.890 Other specified postprocedural states; Z90.49 Acquired absence of other specified parts of digestive tract; Z90.710 Acquired absence of both cervix and uterus; Z79.51 Long term (current) use of inhaled steroids; Z79.899 Other long term (current) drug therapy
CPT/HCPCS: 57288; C1771; J2250; J1200; J1580 ×2; J1100; J2405; J0290; J1885 ×2

== ENCOUNTER 2023-05-26 13:57 | Emergency (ER) | payer MEDICAID ==
[2023-05-26 14:07] VITALS: BP 124/86; PULSE 101; RESP 18; TEMP 98.2
[2023-05-26 14:46] LABS: Basophils # (A) 0.1 k/uL (0-0.2); Basophils % (A) 1 %; Eosinophils # (A) 0.1 k/uL (0-0.7); Eosinophils % (A) 1 %; HCT 42.2 % (34.0-46.0); Lymphocytes # (A) 0.6 k/uL (1.0-4.8); Lymphocytes % (A) 8 %; MCH 31.8 pg (25.0-35.0); MCHC 35.6 g/dL (31.0-37.0); MCV 89.3 fL (80.0-100.0); Mean Platelet Volume 8.9; Monocytes # (A) 0.3 k/uL (0-1.0); Monocytes % (A) 4 %; Neutrophils # (A) 6.2 k/uL (1.3-7.7); Neutrophils % (A) 84 %; Platelet Count 214 k/uL (150-450); RBC 4.72 m/uL (3.80-5.40); RDW 13.2 % (11.5-15.5); WBC 7.3 k/uL (3.8-10.6)
[2023-05-26] MEDS ORDERED: SODIUM CHLORIDE 0.9% 1,000 ML IV ONE (14:51)
[2023-05-26 15:01] LABS: ALT 15 U/L (4-34); AST 24 U/L (14-36); African American GFR (CKD) 88 (>60 ml/min/1.73 sqM); Albumin 4.4 g/dL (3.5-5.0); Alkaline Phosphatase 79 U/L (38-126); Anion Gap 10 mmol/L; Blood Urea Nitrogen 12 mg/dL (7-17); Calcium 9.5 mg/dL (8.4-10.2); Carbon Dioxide 22 mmol/L (22-30); Chloride 105 mmol/L (98-107); Glucose 94 mg/dL (74-99); Non-African American GFR(CKD) 77 (>60 ml/min/1.73 sqM); Potassium 4.4 mmol/L (3.5-5.1); Sodium 137 mmol/L (137-145); Total Bilirubin 0.7 mg/dL (0.2-1.3); Total Protein 7.6 g/dL (6.3-8.2)
[2023-05-26 15:55] LABS: Color,Urine Light Orange
[2023-05-26 15:56] LABS: Appearance,Urine Clear (Clear)
[2023-05-26 16:01] LABS: Bilirubin,Urine Negative (Negative); Glucose,Urine (UA) Negative (Negative); Ketones,Urine Trace (Negative); PH, Urine 5.5 (5.0-8.0); Protein,Urine Trace (Negative); Specific Gravity,Urine >1.030 (1.001-1.035)
[2023-05-26 16:02] LABS: Blood,Urine Negative (Negative); Leukocyte Esterase,Urine Negative (Negative); Nitrite,Urine Negative (Negative); Urobilinogen,Urine <2.0 mg/dL (<2.0)
--- NOTE | 2023-05-26 16:32 | XR ---
EXAMINATION TYPE: XR chest 2V DATE OF EXAM: 05/26/2023 COMPARISON: 03/05/2021 INDICATION: Cough, fever TECHNIQUE: Frontal and lateral views of the chest are obtained. FINDINGS: The heart size is normal. The pulmonary vasculature is normal. Some minimal infiltrates in the right middle lobe. Some linear opacity is within the lingula. Finding s could be related atelectasis. Developing right middle lobe pneumonia should be considered. IMPRESSION: 1. Right middle lobe pneumonia or atelectasis with some minimal atelectasis within the lingula. Follo w-up can be performed.
--- NOTE | 2023-05-26 16:44 | ED ---
General Adult HPI - General Chief complaint: Fever Stated complaint: Fever Time Seen by Provider: 05/26/23 14:14 Source: patient, RN notes reviewed Mode of arrival: ambulatory Limitations: no limitations - History of Present Illness Initial comments: 42-year-old female with no significant past medical history presents the emergency department with a chief complaint of fever. Patient reports that she has had a fever that has been intermittent for the last 4 days. She reports that she has had a nonproductive cough as well. She called her parachute harness rigger who prescribed. Azithromycin. She is on day 2 of antibiotics. She denies any shortness of breath, dyspnea, chest pain. Denies recent sick contacts. - Related Data Home Medications Medication Instructions Recorded Confirmed Albuterol Inhaler [Ventolin Hfa 2 puff INHALATION RT-QID PRN 03/05/21 04/18/23 Inhaler] Ibuprofen 800 mg PO Q8H PRN 03/05/21 04/18/23 Unk Trelegy 1 puff INHALATION DAILY 04/13/23 04/18/23 Previous Rx's Medication Instructions Recorded predniSONE 50 mg PO DAILY #5 tablet 05/26/23 Allergies Allergy/AdvReac Type Severity Reaction Status Date / Time sumatriptan [From Imitrex] Allergy Swelling Verified 04/18/23 07:53 sumatriptan succinate Allergy Swelling Verified 04/18/23 07:53 [From Imitrex] of face Review of Systems ROS Statement: Those systems with pertinent positive or pertinent negative responses have been documented in the HPI. ROS Other: All systems not noted in ROS Statement are negative. Past Medical History Past Medical History: Asthma, Pneumonia Additional Past Medical History / Comment(s): occ migraine, hx HIATAL HERNIA, itchy skin on stomach, History of Any Multi-Drug Resistant Organisms: MRSA Date of last positivie culture/infection: 02/05/20 MDRO Source:: Abdomen Past Surgical History: Bladder Surgery, Section, Cholecystectomy, Hysterectomy, Uterine Ablation Additional Past Surgical History / Comment(s): EGD, LEEP, surgery to repair hiatal hernia, bladder sling 04/2023 Past Anesthesia/Blood Transfusion Reactions: Previous Problems w/ Anesthesia, Postoperative Nausea & Vomiting (PONV) Additional Past Anesthesia/Blood Transfusion Reaction / Comment(s): DIFFICULTY BREATHING WHEN SHE WOKE UP. Past Psychological History: No Psychological Hx Reported Smoking Status: Never smoker Past Alcohol Use History: Rare Past Drug Use History: None Reported - Past Family History Mother Family Medical History: Deep Vein Thrombosis (DVT) Daughter(s) Family Medical History: Pulmonary Embolus Sister(s) Family Medical History: Pulmonary Embolus General Exam - General Exam Comments Initial Comments: General: Alert, in no acute distress Head: atraumatic normocephalic. Eyes PERRL, EOMI intact, mucous membranes moist Respiratory: Lungs clear to auscultation bilaterally Cardiovascular: Heart rate regular rate and rhythm Abdominal: Soft without guarding or rebound Extremities: Normal inspection with full range of motion and normal capillary refill Neuroogic: alert and oriented 3, CN II-XII intact, able to ambulate with steady gait Skin: warm dry and intact with normal color Limitations: no limitations Course Vital Signs 05/26/23 05/26/23 13:59 15:21 Temperature 98.2 F Pulse Rate 101 H Respiratory 18 18 Rate Blood Pressure 124/86 O2 Sat by Pulse 96 Oximetry Medical Decision Making - Medical Decision Making Was pt. sent in by a medical professional or institution (, PA, AMERICAN INDIAN STUDIES PROFESSOR, urgent care, hospital, or custodial...) When possible be specific @ -[No] Did you speak to anyone other than the patient for history (EMS, parent, family, police, friend...)? What history was obtained from this source @ -[No] Did you review nursing and triage notes (agree or disagree)? Why? @ -[I reviewed and agree with nursing and triage notes] Were old charts reviewed (outside hosp., previous admission, EMS record, old EKG, old radiological studies, urgent care reports/EKG's, custodial records)? Report findings @ -[No old charts were reviewed] Differential Diagnosis (chest pain, altered mental status, abdominal pain women, abdominal pain men, vaginal bleeding, weakness, fever, dyspnea, syncope, headache, dizziness, GI bleed, back pain, seizure, CVA, palpatations, mental health, musculoskeletal)? @ -[not applicable] EKG interpreted by me (3pts min.). @ -[As above] X-rays interpreted by me (1pt min.). @ -Yes chest x-ray reveals atelectasis versus right middle lobe or pneumonia. CT interpreted by me (1pt min.). @ -[None done] U/S interpreted by me (1pt. min.). @ -[None done] What testing was considered but not performed or refused? (CT, X-rays, U/S, labs)? Why? @ -[None] What meds were considered but not given or refused? Why? @ -[None] Did you discuss the management of the patient with other professionals (professionals i.e. , PA, AMERICAN INDIAN STUDIES PROFESSOR, lab, RT, psych nurse, social studies teacher, emt i/99, teacher, staff combat information center officer, gearcase assembler)? Give summary @ -[No] Was smoking cessation discussed for >3mins.? @ -[No] Was critical care preformed (if so, how long)? @ -[No] Were there social determinants of health that impacted care today? How? (Homelessness, low income, unemployed, alcoholism, drug addiction, transportation, low edu. Level, literacy, decrease access to med. care, residential, rehab)? @ -[No] Was there de-escalation of care discussed even if they declined (Discuss DNR or withdrawal of care, Hospice)? DNR status @ -[No] What co-morbidities impacted this encounter? (DM, HTN, Smoking, COPD, CAD, Cancer, CVA, ARF, Chemo, Hep., AIDS, mental health diagnosis, sleep apnea, morbid obesity)? @ -[None] Was patient admitted / discharged? Hospital course, mention meds given and route, prescriptions, significant lab abnormalities, going to OR and other pertinent info. @ -Discharged. This is a 42-year-old female who presents the emergency department with fever. Patient had a history and physical exam performed. Vital signs are stable. Patient afebrile. Heart rate regular rate and rhythm, lungs clear to auscultation bilaterally abdomen soft nontender. Patient had laboratory studies which were unremarkable. Chest x-ray reveals r ight lower lobe pneumonia versus atelectasis. Patient was instructed to continue taking Z-Huseyin. Patient provided prescription for prednisone. Patient given Rocephin vomiting department. Return precautions discussed at length. Patient discharged stable condition Case is discussed with HIRA Ortiz who agrees with plan of care Undiagnosed new problem with uncertain prognosis? @ -[No] Drug Therapy requiring intensive monitoring for toxicity (Heparin, Nitro, Insulin, Cardizem)? @ -[No] Were any procedures done? @ -[No] Diagnosis/symptom? @ -Fever - Pnuemonia Acute, or Chronic, or Acute on Chronic? @ -Acute Uncomplicated (without systemic symptoms) or Complicated (systemic symptoms)? @ -Complicated Side effects of treatment? @ -[No] Exacerbation, Progression, or Severe Exacerbation? @ -[No] Poses a threat to life or bodily function? How? (Chest pain, [place], [place], pneumonia, PE, COPD, DKA, ARF, appy, cholecystitis, CVA, Diverticulitis, Homicidal, Suicidal, threat to staff... and all critical care pts) @ -Low likelihood, pneumonia - Lab Data Result diagrams: 05/26/23 14:38 05/26/23 14:38 Lab Results 05/26/23 05/26/23 05/26/23 Range/Units 14:38 14:38 15:01 WBC 7.3 (3.8-10.6) k/uL RBC 4.72 (3.80-5.40) m/uL Hgb 15.0 (11.4-16.0) gm/dL Hct 42.2 (34.0-46.0) % MCV 89.3 (80.0-100.0) fL MCH 31.8 (25.0-35.0) pg MCHC 35.6 (31.0-37.0) g/dL RDW 13.2 (11.5-15.5) % Plt Count 214 (150-450) k/uL MPV 8.9 Neutrophils % 84 % Lymphocytes % 8 % Monocytes % 4 % Eosinophils % 1 % Basophils % 1 % Neutrophils # 6.2 (1.3-7.7) k/uL Lymphocytes # 0.6 L (1.0-4.8) k/uL Monocytes # 0.3 (0-1.0) k/uL Eosinophils # 0.1 (0-0.7) k/uL Basophils # 0.1 (0-0.2) k/uL Sodium 137 (137-145) mmol/L Potassium 4.4 (3.5-5.1) mmol/L Chloride 105 (98-107) mmol/L Carbon Dioxide 22 (22-30) mmol/L Anion Gap 10 mmol/L BUN 12 (7-17) mg/dL Creatinine 0.93 (0.52-1.04) mg/dL Est GFR (CKD-EPI)AfAm 88 (>60 ml/min/1.73 sqM) Est GFR (CKD-EPI)NonAf 77 (>60 ml/min/1.73 sqM) Glucose 94 (74-99) mg/dL Calcium 9.5 (8.4-10.2) mg/dL Total Bilirubin 0.7 (0.2-1.3) mg/dL AST 24 (14-36) U/L ALT 15 (4-34) U/L Alkaline Phosphatase 79 (38-126) U/L Total Protein 7.6 (6.3-8.2) g/dL Albumin 4.4 (3.5-5.0) g/dL Urine Color Light [place] Urine Appearance Clear (Clear) Urine pH 5.5 (5.0-8.0) Ur Specific [place] >1.030 (1.001-1.035) Urine Protein Trace H (Negative) Urine Glucose (UA) Negative (Negative) Urine Ketones Trace (Negative) Urine Blood Negative (Negative) Urine Nitrite Negative (Negative) Urine Bilirubin Negative (Negative) Urine Urobilinogen <2.0 (<2.0) mg/dL Ur Leukocyte Esterase Negative (Negative) Influenza Type A (PCR) (Not Detectd) Influenza Type B (PCR) (Not Detectd) RSV (PCR) (Not Detectd) SARS-CoV-2 (PCR) (Not Detectd) 05/26/23 Range/Units 15:01 WBC (3.8-10.6) k/uL RBC (3.80-5.40) m/uL Hgb (11.4-16.0) gm/dL Hct (34.0-46.0) % MCV (80.0-100.0) fL MCH (25.0-35.0) pg MCHC (31.0-37.0) g/dL RDW (11.5-15.5) % Plt Count (150-450) k/uL MPV Neutrophils % % Lymphocytes % % Monocytes % % Eosinophils % % Basophils % % Neutrophils # (1.3-7.7) k/uL Lymphocytes # (1.0-4.8) k/uL Monocytes # (0-1.0) k/uL Eosinophils # (0-0.7) k/uL Basophils # (0-0.2) k/uL Sodium (137-145) mmol/L Potassium (3.5-5.1) mmol/L Chloride (98-107) mmol/L Carbon Dioxide (22-30) mmol/L Anion Gap mmol/L BUN (7-17) mg/dL Creatinine (0.52-1.04) mg/dL Est GFR (CKD-EPI)AfAm (>60 ml/min/1.73 sqM) Est GFR (CKD-EPI)NonAf (>60 ml/min/1.73 sqM) Glucose (74-99) mg/dL Calcium (8.4-10.2) mg/dL Total Bilirubin (0.2-1.3) mg/dL AST (14-36) U/L ALT (4-34) U/L Alkaline Phosphatase (38-126) U/L Total Protein (6.3-8.2) g/dL Albumin (3.5-5.0) g/dL Urine Color Urine Appearance (Clear) Urine pH (5.0-8.0) Ur Specific [place] (1.001-1.035) Urine Protein (Negative) Urine Glucose (UA) (Negative) Urine Ketones (Negative) Urine Blood (Negative) Urine Nitrite (Negative) Urine Bilirubin (Negative) Urine Urobilinogen (<2.0) mg/dL Ur Leukocyte Esterase (Negative) Influenza Type A (PCR) Not Detected (Not Detectd) Influenza Type B (PCR) Not Detected (Not Detectd) RSV (PCR) Not Detected (Not Detectd) SARS-CoV-2 (PCR) Not Detected (Not Detectd) Disposition Clinical Impression: Fever, Pneumonia Disposition: HOME SELF-CARE Condition: Stable Instructions (If sedation given, give patient instructions): Fever in Adults (ED), Pneumococcal Vaccine for Adults (ED) Additional Instructions: These continue to take azithromycin and prednisone Please return to the nearest emergency department if worsening fever, worsening shortness breath develop Prescriptions: predniSONE 50 mg PO DAILY #5 tablet Is patient prescribed a controlled substance at d/c from ED?: No Referrals: Tomer Bailey DO [Primary Care Provider] - 1-2 days Time of Disposition: 16:48
[2023-05-26] MEDS ORDERED: cefTRIAXone 1,000 MG VIAL (IM USE) IM STA (16:57)
[2023-05-26] MEDS ORDERED: cefTRIAXone IN SWFI 1,000 MG/10 ML SYRINGE IVP STA (17:05)
== END 2023-05-26 17:16 | disposition home or self-care (01) ==
LOC: EC 13:57
DX: J18.9 Pneumonia, unspecified organism (principal); J45.909 Unspecified asthma, uncomplicated; Z90.49 Acquired absence of other specified parts of digestive tract; Z88.9 Allergy status to unspecified drugs, medicaments and biological substances; Z20.822 Contact with and (suspected) exposure to COVID-19
CPT/HCPCS: 36415; 80053; 85025; 81003; 87636; 71046; 99283; 96374; 96361; J0696

== ENCOUNTER → 2023-08-30 | Outpatient (CLI) | payer OTHER ==
[2023-08-30 21:31] LABS: Alternaria alternata IgE <0.10 kU/L; Aspergillus fumagatus IgE <0.10 kU/L; Birch IgE 0.46 kU/L; Cladosporian herbarum IgE <0.10 kU/L; Cockroach IgE <0.10 kU/L; Dermato. farinae IgE <0.10 kU/L; Elm IgE 0.47 kU/L; Maple (Box Elder) IgE 1.43 kU/L; Oak IgE 0.21 kU/L; Ragweed,Common IgE 0.21 kU/L; Red Top (Bentgrass) IgE 0.14 kU/L
== END | disposition home or self-care (01) ==
LOC: LABWHC1 11:07
PROVIDERS: ATTEND Internal Medicine Critical Care Medicine
DX: J45.901 Unspecified asthma with (acute) exacerbation (principal)
CPT/HCPCS: 36415; 82785; 85008; 86003

== ENCOUNTER → 2023-09-27 | Outpatient (CLI) | payer OTHER ==
--- NOTE | 2023-09-27 13:04 | MM ---
Reason for Exam: Screening (asymptomatic). Last mammogram was performed 2 year(s) and 9 month(s) ago. Patient History: Menarche at age 13. First Full-Term at age 29. Hysterectomy at age 32. Postmenopausal. Excisional Biopsy on the Right side. Risk Values: Augustina 5 year model risk: 1.3%. NCI Lifetime model risk: 13.0%. Prior Study Comparison: 05/03/2012 Screening Mammogram, [facility]. 08/31/2015 Screening Mammogram, [facility]. 12/27/2020 Bilateral Screening Mammogram, [facility]. Tissue Density: The breasts are heterogeneously dense, which may obscure small masses. Findings: Analyzed By CAD. There is no suspicious group of microcalcifications or new suspicious mass in either breast. Overall Assessment: Benign, BI-RAD 2 Management: Screening Mammogram of both breasts in 1 year. . Patient should continue monthly self-breast exams. A clinical breast exam by your physician is recommended on an annual basis. This exam should not preclude additional follow-up of suspicious palpable abnormalities. Note on Augustina scores and lifetime risk: 1. A Augustina score greater than 3% is considered moderate risk. If this is the case, consider specialist referral to assess eligibility for a risk reducing agent. 2. If overall lifetime risk for the development of breast cancer is 20% or higher, the patient may qualify for future screening with alternating mammogram and breast MRI. Electronically signed and approved by: Irving Rothman M.D. Radiologis
== END | disposition home or self-care (01) ==
LOC: RADMAMWWP 11:00
PROVIDERS: ATTEND Obstetrics & Gynecology
DX: Z12.31 Encounter for screening mammogram for malignant neoplasm of breast (principal); Z78.0 Asymptomatic menopausal state
CPT/HCPCS: 77067